=== PATIENT | female | born 1990 | race Caucasian/White ===

== ENCOUNTER 2016-07-11 13:01 | Emergency (ER) | payer OTHER ==
[2016-07-11] MEDS ORDERED: METOCLOPRAMIDE INJ 10MG/2ML VIAL (J2765) As Ordered ONE (13:56)
[2016-07-11] MEDS ORDERED: diphenhydrAMINE INJ 50MG/ML VIAL (J1200) As Ordered ONE (13:56)
[2016-07-11 14:07] LABS: MEAN CORPUSCULAR HEMOGLOBIN 30.8 pg (27.0-33.0); MEAN CORPUSCULAR HGB CONC 33.1 g/dl (32.0-36.5); MEAN CORPUSCULAR VOLUME 93.2 fl (80.0-96.0); RED CELL DISTRIBUTION WIDTH 12.6 % (11.5-14.5); WHITE BLOOD COUNT 14.6 K/mm3 (4.0-10.0)
[2016-07-11 14:29] LABS: CONTROL LINE HCG INT CTR LINE PRESENT
[2016-07-11 14:33] LABS: ANION GAP 5 MEQ/L (8-16); BLOOD UREA NITROGEN 9 MG/DL (7-18); CARBON DIOXIDE LEVEL 29 MEQ/L (21-32); CHLORIDE LEVEL 106 MEQ/L (98-107); CREATININE FOR GFR 0.86 MG/DL (0.55-1.02); GLOMERULAR FILTRATION RATE > 60.0 (>60); GLUCOSE, FASTING 170 MG/DL (70-105); POTASSIUM SERUM 4.2 MEQ/L (3.5-5.1); SODIUM LEVEL 140 MEQ/L (136-145)
--- NOTE | 2016-07-11 14:53 | REP ---
CT Head without contrast HISTORY: Headache COMPARISON: MR 05/10/2012 There is no intraparenchymal hemorrhage, acute infarct, mass or midline shift. The ventricular system is normal in appearance. There is no extra cerebral collection. There is no fracture. Mucosal thickening is present in the right ethmoid sinus. IMPRESSION: There is no intracranial lesion. Signed by Ubaldo Mcgrath MD 07/11/2016 02:45 P
--- NOTE | 2016-07-11 15:18 | EDDOCDS ---
Nurse's Notes [facility] Name: Evelia Bray Age: 26 yrs Sex: Female : 1990 Arrival Date: 07/11/2016 Time: 13:01 Bed I7 / 29 Private MD: John Ríos Diagnosis: Migraine Presentation: 07/11 13:04 Presenting complaint: Patient states: headache on and off for 6 months at least once a rs3 week. has taken Motrin previously. severe headache for 2 days. vomiting since last night. no relief with Motrin. Adult Sepsis Screening: The patient does not have new or worsening altered mentation. Patient's respiratory rate is less than 22. Systolic blood pressure is greater than 100. Patient has a qSOFA score of 0- Negative Sepsis Screen. Suicide/Homicide risk assessment- the patient denies having any suicidal and/or homicidal ideations and does not present with any other emotional, behavioral or mental health complaints. Status: The patient is a dependent. Transition of care: patient was not received from another setting of care. 13:04 Acuity: XIMENA Level 3 rs3 13:04 Method Of Arrival: Walkin/Carried/Asstd rs3 Triage Assessment: 13:06 General: Appears in no apparent distress. Pain: Location: forehead and right hindu. rs3 HIV screening NA for this visit Offered previously. 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 Humalog 100 unit/mL Sub-Q soln before meals 2. Lantus 100 unit/mL Sub-Q soln 30 unit nightly - PMHx: Diabetes - IDDM: controlled; - PSHx: ; - Social history: Smoking status: Patient uses tobacco products, light tobacco smoker. No barriers to communication noted, The patient speaks fluent Mongolian. - Family history: Not pertinent. - : The pt / caregiver states he / she is not on anticoagulants. Home medication list is obtained from the patient. - Exposure Risk Screening:: None identified. Screenin:39 Screening information is obtained from the patient. Fall risk: No risks identified. mk4 Assistance ADL's: requires no assistance with activities of daily living. Abuse/DV Screen: The patient / caregiver reports he/she is: not in a situation that causes fear, pain or injury. Nutritional screening: No deficits noted. Advance Directives: Currently, there is no health care proxy. There is no active DNR order. There is no living will. There is no Power of Psychiatric Mental Health Nurse. Advance directive information has not previously been placed in an [facility] medical record. Further advance directive information is declined. home support is adequate. Assessment: 14:02 General: Appears distressed, uncomfortable, Behavior is cooperative. Pain: Location: mk4 posterior headache Pain currently is 10 out of 10 on a pain scale. Neurological: Level of Consciousness is awake, alert. Respiratory: Airway is patent Respiratory effort is even, unlabored, Respiratory pattern is regular. 14:39 Reassessment: Patient states feeling better. headache not gone but feeling better. mk4 Neurological: Level of Consciousness is awake, alert, Reports some improvement. 15:17 Reassessment: Patient states feeling better. Pain: Location: headache Pain currently is kr3 3 out of 10 on a pain scale. Respiratory: Respiratory effort is even, unlabored. Derm: Skin is pink, warm & dry. Vital Signs: 13:02 BP 133 / 81; Pulse 104; Resp 18; Temp 97.6(T); Pulse Ox 100% on R/A; Weight 54.43 kg lr2 (R); Height 5 ft. 2 in. (157.48 cm); 15:15 BP 102 / 71; Pulse 82; Resp 18; Temp 97.8(O); Pulse Ox 99% on R/A; Pain 3/10; jml1 13:02 Body Mass Index 21.95 (54.43 kg, 157.48 cm) lr2 Vitals: 13:02 Log In Time: July 11, 2016 at 13:01. lr2 ED Course: 13:02 Patient visited by Laine Lozano. lr2 13:02 John Ríos DO is Private Physician. lr2 13:02 Patient moved to Waiting lr2 13:02 Patient moved to Pre RCE lr2 13:06 Triage Initiated rs3 13:26 Patient moved to Triage 3 jo3 13:28 [facility] ke 13:28 Patient visited by Sunday Gutierrez FNP. ke 13:28 Patient visited by Sunday Gutierrez FNP. ke 13:48 Patient moved to I7 / 29 rs3 13:59 Patient visited by Sunday Gutierrez FNP. ke 13:59 Inserted saline lock: 20 gauge in right antecubital area. mk4 14:01 HCG,Serum Qualitative Sent. mk4 14:01 BMP Sent. mk4 14:01 CBC Sent. mk4 14:33 Patient visited by Gina Perez RN. mk4 14:[address] mk4 14:39 The patient / caregiver is instructed regarding the plan of care and ED course. mk4 14:42 Patient moved to I7 ek2 14:48 ON LICENSE OF [facility] Payment Agreement was scanned into [employer] and attached to record. mm15 14:54 CT Head Without Contrast Returned. EDMS 14:59 Patient visited by Sunday Gutierrez FNP. ke 15:03 Niranjan Bain is Referral Physician. ke 15:15 Patient visited by Anatoliy Hanks. jml1 15:16 Discontinued lock intact, bleeding controlled, pressure dressing applied, No kr3 redness/swelling at site. No procedures done that require assistance. Administered Medications: 14:03 Drug: NS 0.9% 1000 ml [sodium chloride 0.9 % intravenous solution] Route: IV; Rate: kr3 bolus; Site: right antecubital; 15:16 Follow up: IV Status: Completed infusion; IV Intake: 1000ml kr3 14:03 Drug: Metoclopramide 10 mg [metoclopramide 5 mg/mL injection solution] Route: IV; Rate: kr3 40 mg/hr; Infused Over: 15 mins; Site: right antecubital; 15:16 Follow up: IV Status: Completed infusion kr3 14:03 Drug: diphenhydrAMINE 50 mg [diphenhydramine 50 mg/mL injection solution (1 mL)] Route: kr3 IVP; Site: right antecubital; Intake: 15:16 IV: 1000.00ml; Total: 1000.00ml. kr3 Order Results: Lab Order: CBC; SPEC'M 07/11/16 13:59 Test: WHITE BLOOD COUNT; Value: 14.6; Range: 4.0-10.0; Abnormal: Above high normal; Units: K/mm3; Status: F Test: RED BLOOD COUNT; Value: 4.79; Range: 4.00-5.40; Units: M/mm3; Status: F Test: HEMOGLOBIN; Value: 14.8; Range: 12.0-16.0; Units: g/dl; Status: F Test: HEMATOCRIT; Value: 44.6; Range: 36.0-47.0; Units: %; Status: F Test: MEAN CORPUSCULAR VOLUME; Value: 93.2; Range: 80.0-96.0; Units: fl; Status: F Test: MEAN CORPUSCULAR HEMOGLOBIN; Value: 30.8; Range: 27.0-33.0; Units: pg; Status: F Test: MEAN CORPUSCULAR HGB CONC; Value: 33.1; Range: 32.0-36.5; Units: g/dl; Status: F Test: RED CELL DISTRIBUTION WIDTH; Value: 12.6; Range: 11.5-14.5; Units: %; Status: F Test: PLATELET COUNT, AUTOMATED; Value: 319; Range: 150-450; Units: k/mm3; Status: F Lab Order: [facility]; SPEC'M 07/11/16 13:59 Test: GLUCOSE, FASTING; Value: 170; Range: 70-105; Abnormal: Above high normal; Units: MG/DL; Status: F Test: BLOOD UREA NITROGEN; Value: 9; Range: 7-18; Units: MG/DL; Status: F Test: CREATININE FOR GFR; Value: 0.86; Range: 0.55-1.02; Units: MG/DL; Status: F Test: SODIUM LEVEL; Range: 136-145; Units: MEQ/L; Status: I Test: POTASSIUM SERUM; Range: 3.5-5.1; Units: MEQ/L; Status: I Test: CHLORIDE LEVEL; Range: 98-107; Units: MEQ/L; Status: I Test: CARBON DIOXIDE LEVEL; Range: 21-32; Units: MEQ/L; Status: I Test: ANION GAP; Range: 8-16; Units: MEQ/L; Status: I Test: CALCIUM LEVEL; Range: 8.5-10.1; Units: MG/DL; Status: I Test: GLOMERULAR FILTRATION RATE; Value: > 60.0; Range: >60; Status: F Test: SODIUM LEVEL; Value: 140; Range: 136-145; Units: MEQ/L; Status: F Test: POTASSIUM SERUM; Value: 4.2; Range: 3.5-5.1; Units: MEQ/L; Status: F Test: CHLORIDE LEVEL; Value: 106; Range: 98-107; Units: MEQ/L; Status: F Test: CARBON DIOXIDE LEVEL; Value: 29; Range: 21-32; Units: MEQ/L; Status: F Test: ANION GAP; Value: 5; Range: 8-16; Abnormal: Below low normal; Units: MEQ/L; Status: F Test: CALCIUM LEVEL; Value: 9.0; Range: 8.5-10.1; Units: MG/DL; Status: F Test Note: ; Units are mL/min/1.73 m2 Chronic Kidney Disease Staging per NKF: Stage I & II GFR >=60 Normal to Mildly Decreased Stage III GFR 30-59 Moderately Decreased Stage IV GFR 15-29 Severely Decreased Stage V GFR <15 Very Little GFR Left ESRD GFR <15 on BOW MAKER CUSTOM Lab Order: HCG,Serum Qualitative; SPEC'M 07/11/16 13:59 Test: HCG, SERUM QUALITATIVE; Value: NEGATIVE; Range: NEGATIVE; Status: F Radiology Order: CT Head Without Contrast Test: CT Head Without Contrast REASON FOR EXAMINATION: nuñez; CT Head without contrast; ; HISTORY: Headache; ; COMPARISON: MR 05/10/2012; ; There is no intraparenchymal hemorrhage, acute infarct, mass or midline shift.; The ventricular system is normal in appearance. There is no extra cerebral; collection. There is no fracture. Mucosal thickening is present in the right; ethmoid sinus.; ; IMPRESSION: There is no intracranial lesion.; ; ; ; ; Signed by; Ubaldo Mcgrath MD 07/11/2016 02:45 P; Outcome: 15:03 Discharge ordered by Provider. ke 15:16 Discharge Assessment: patient administered narcotics - no. The following High Risk kr3 Discharge criteria are identified: None. Discharged to home ambulatory, with family. Condition: improved. Discharge instructions given to patient, Instructed on discharge instructions, follow up and referral plans. medication usage, Demonstrated understanding of instructions, medications, Pt was receptive of discharge instructions/ teaching. Prescriptions given X 1. CT Study completed. Property sent home with patient. 15:17 Patient left the ED. kr3 Signatures: [facility] Sunday Gutierrez, NET SOLUTIONS ARCHITECT NET SOLUTIONS ARCHITECT Mickie Robbins,RN RN kr3 Nidia Vences,RN RN jo3 Slick,Charlee,RN RN rs3 Anatoliy Hanks l1 Veronica Das 15 Gina Perez RN RN mk4 Chitra, Gokul 2 Laine Lozano2 MTDD
--- NOTE | 2016-07-11 15:18 | EDDOCDS ---
Physician Documentation [facility] Name: Evelia Bray Age: 26 yrs Sex: Female : 1990 Arrival Date: 07/11/2016 Time: 13:01 Bed I7 / 29 Private MD: John Ríos Disposition: 07/11/16 15:03 Discharged to Home/Self Care. Impression: Migraine. - Condition is Stable. - Discharge Instructions: Migraine Headache. - Prescriptions for Reglan 10 mg Oral Tablet - take 1 tablet by ORAL route every 6 hours take 30 minutes before meals and at bedtime; 20 tablet. - Medication Reconciliation, Local Pharmacy Hours form. - Follow up: Niranjan Bain; When: Call to arrange an appointment; Reason: Further diagnostic work-up, Continuance of care. - Problem is an acute exacerbation. - Symptoms have improved. Historical: - Allergies: no known allergies; - Home Meds: 1. Humalog 100 unit/mL Sub-Q soln before meals 2. Lantus 100 unit/mL Sub-Q soln 30 unit nightly - PMHx: Diabetes - IDDM: controlled; - PSHx: ; - Social history: Smoking status: Patient uses tobacco products, light tobacco smoker. No barriers to communication noted, The patient speaks fluent German. - Family history: Not pertinent. - : The pt / caregiver states he / she is not on anticoagulants. Home medication list is obtained from the patient. - Exposure Risk Screening:: None identified. 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 2 in. (157.48 cm); 15:15 BP 102 / 71; Pulse 82; Resp 18; Temp 97.8(O); Pulse Ox 99% on R/A; Pain 3/10; jml1 13:02 Body Mass Index 21.95 (54.43 kg, 157.48 cm) lr2 MDM: 13:46 IV Saline Lock ordered. ke 13:46 NS 0.9% 1000 ml IV at bolus once ordered. ke 13:46 Metoclopramide 10 mg IV at 40 mg/hr once over 15 mins ordered. ke 13:46 diphenhydrAMINE 50 mg IVP once ordered. ke 13:46 CBC Ordered. EDMS 13:46 BMP Ordered. EDMS 13:46 HCG,Serum Qualitative Ordered. EDMS 13:47 CT Head Without Contrast Ordered. EDMS 14:39 CBC Reviewed. ke 14:39 BMP Reviewed. ke 14:39 HCG,Serum Qualitative Reviewed. ke 14:46 Financial registration complete. mm15 14:48 [facility] Payment Agreement was scanned into [employer] and attached to record. mm15 14:56 CT Head Without Contrast Reviewed. ke Administered Medications: 14:03 Drug: NS 0.9% 1000 ml [sodium chloride 0.9 % intravenous solution] Route: IV; Rate: kr3 bolus; Site: right antecubital; 15:16 Follow up: IV Status: Completed infusion; IV Intake: 1000ml kr3 14:03 Drug: Metoclopramide 10 mg [metoclopramide 5 mg/mL injection solution] Route: IV; Rate: kr3 40 mg/hr; Infused Over: 15 mins; Site: right antecubital; 15:16 Follow up: IV Status: Completed infusion kr3 14:03 Drug: diphenhydrAMINE 50 mg [diphenhydramine 50 mg/mL injection solution (1 mL)] Route: kr3 IVP; Site: right antecubital; Signatures: Dispatcher [facility] EDMS Sunday Gutierrez, FEED MILL SUPERVISOR FEED MILL SUPERVISOR Mickie Robbins RN RN kr3 Charlee Kruger RN RN viviana3 Veronica Das mm15 Gina Perez RN RN mk4 The chart was reviewed and I authenticate all verbal orders and agree with the evaluation and treatment provided.Attachments: 14:48 [facility] Payment Agreement mm15 MTDD
--- NOTE | 2016-07-13 16:18 | EDDOCDS ---
Physician Documentation [facility] Name: Evelia Bray Age: 26 yrs Sex: Female : 1990 Arrival Date: 07/11/2016 Time: 13:01 Bed I7 / 29 Private MD: John Ríos Disposition: 07/11/16 15:03 Discharged to Home/Self Care. Impression: Migraine. - Condition is Stable. - Discharge Instructions: Migraine Headache. - Prescriptions for Reglan 10 mg Oral Tablet - take 1 tablet by ORAL route every 6 hours take 30 minutes before meals and at bedtime; 20 tablet. - Medication Reconciliation, Local Pharmacy Hours form. - Follow up: Niranjan Bain; When: Call to arrange an appointment; Reason: Further diagnostic work-up, Continuance of care. - Problem is an acute exacerbation. - Symptoms have improved. Historical: - Allergies: no known allergies; - Home Meds: 1. Humalog 100 unit/mL Sub-Q soln before meals 2. Lantus 100 unit/mL Sub-Q soln 30 unit nightly - PMHx: Diabetes - IDDM: controlled; - PSHx: ; - Social history: Smoking status: Patient uses tobacco products, light tobacco smoker. No barriers to communication noted, The patient speaks fluent Macanese. - Family history: Not pertinent. - : The pt / caregiver states he / she is not on anticoagulants. Home medication list is obtained from the patient. - Exposure Risk Screening:: None identified. 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 2 in. (157.48 cm); 15:15 BP 102 / 71; Pulse 82; Resp 18; Temp 97.8(O); Pulse Ox 99% on R/A; Pain 3/10; jml1 13:02 Body Mass Index 21.95 (54.43 kg, 157.48 cm) lr2 MDM: 13:46 IV Saline Lock ordered. ke 13:46 NS 0.9% 1000 ml IV at bolus once ordered. ke 13:46 Metoclopramide 10 mg IV at 40 mg/hr once over 15 mins ordered. ke 13:46 diphenhydrAMINE 50 mg IVP once ordered. ke 13:46 CBC Ordered. EDMS 13:46 BMP Ordered. EDMS 13:46 HCG,Serum Qualitative Ordered. EDMS 13:47 CT Head Without Contrast Ordered. EDMS 14:39 CBC Reviewed. ke 14:39 BMP Reviewed. ke 14:39 HCG,Serum Qualitative Reviewed. ke 14:46 Financial registration complete. mm15 14:48 [facility] Payment Agreement was scanned into [employer] and attached to record. mm15 14:56 CT Head Without Contrast Reviewed. ke 07/12 12:31 T-Sheet-- Draft Copy was scanned into [employer] and attached to record. gb Administered Medications: 07/11 14:03 Drug: NS 0.9% 1000 ml [sodium chloride 0.9 % intravenous solution] Route: IV; Rate: kr3 bolus; Site: right antecubital; 15:16 Follow up: IV Status: Completed infusion; IV Intake: 1000ml kr3 14:03 Drug: Metoclopramide 10 mg [metoclopramide 5 mg/mL injection solution] Route: IV; Rate: kr3 40 mg/hr; Infused Over: 15 mins; Site: right antecubital; 15:16 Follow up: IV Status: Completed infusion kr3 14:03 Drug: diphenhydrAMINE 50 mg [diphenhydramine 50 mg/mL injection solution (1 mL)] Route: kr3 IVP; Site: right antecubital; Signatures: Dispatcher [facility] EDMS Nicole Head, Reg Reg gb Sunday Gutierrez, MANPOWER DEVELOPMENT SPECIALIST MANAGER MANPOWER DEVELOPMENT SPECIALIST MANAGER Mickie RobbinsRN RN patria3 Charlee Kruger RN RN viviana3 Veronica Das mm15 Gina Perez RN RN mk4 The chart was reviewed and I authenticate all verbal orders and agree with the evaluation and treatment provided.Attachments: 14:48 [facility] Payment Agreement 15 07/12 12:31 T-Sheet-- Draft Copy gb Chart Complete MTDD
--- NOTE | 2016-07-13 16:18 | EDDOCDS ---
Nurse's Notes [facility] Name: Evelia Bray Age: 26 yrs Sex: Female : 1990 Arrival Date: 07/11/2016 Time: 13:01 Bed I7 / 29 Private MD: John Ríos Diagnosis: Migraine Presentation: 07/11 13:04 Presenting complaint: Patient states: headache on and off for 6 months at least once a rs3 week. has taken Motrin previously. severe headache for 2 days. vomiting since last night. no relief with Motrin. Adult Sepsis Screening: The patient does not have new or worsening altered mentation. Patient's respiratory rate is less than 22. Systolic blood pressure is greater than 100. Patient has a qSOFA score of 0- Negative Sepsis Screen. Suicide/Homicide risk assessment- the patient denies having any suicidal and/or homicidal ideations and does not present with any other emotional, behavioral or mental health complaints. Status: The patient is a dependent. Transition of care: patient was not received from another setting of care. 13:04 Acuity: XIMENA Level 3 rs3 13:04 Method Of Arrival: Walkin/Carried/Asstd rs3 Triage Assessment: 13:06 General: Appears in no apparent distress. Pain: Location: forehead and right church. rs3 HIV screening NA for this visit Offered previously. INFORMATION ASSURANCE MANAGER: 13:06 LMP 06/30/2016 rs3 Historical: - Allergies: no known allergies; - Home Meds: 1. Humalog 100 unit/mL Sub-Q soln before meals 2. Lantus 100 unit/mL Sub-Q soln 30 unit nightly - PMHx: Diabetes - IDDM: controlled; - PSHx: ; - Social history: Smoking status: Patient uses tobacco products, light tobacco smoker. No barriers to communication noted, The patient speaks fluent Tajik. - Family history: Not pertinent. - : The pt / caregiver states he / she is not on anticoagulants. Home medication list is obtained from the patient. - Exposure Risk Screening:: None identified. Screenin:39 Screening information is obtained from the patient. Fall risk: No risks identified. mk4 Assistance ADL's: requires no assistance with activities of daily living. Abuse/DV Screen: The patient / caregiver reports he/she is: not in a situation that causes fear, pain or injury. Nutritional screening: No deficits noted. Advance Directives: Currently, there is no health care proxy. There is no active DNR order. There is no living will. There is no Power of Boomboat Operator. Advance directive information has not previously been placed in an [facility] medical record. Further advance directive information is declined. home support is adequate. Assessment: 14:02 General: Appears distressed, uncomfortable, Behavior is cooperative. Pain: Location: mk4 posterior headache Pain currently is 10 out of 10 on a pain scale. Neurological: Level of Consciousness is awake, alert. Respiratory: Airway is patent Respiratory effort is even, unlabored, Respiratory pattern is regular. 14:39 Reassessment: Patient states feeling better. headache not gone but feeling better. mk4 Neurological: Level of Consciousness is awake, alert, Reports some improvement. 15:17 Reassessment: Patient states feeling better. Pain: Location: headache Pain currently is kr3 3 out of 10 on a pain scale. Respiratory: Respiratory effort is even, unlabored. Derm: Skin is pink, warm & dry. Vital Signs: 13:02 BP 133 / 81; Pulse 104; Resp 18; Temp 97.6(T); Pulse Ox 100% on R/A; Weight 54.43 kg lr2 (R); Height 5 ft. 2 in. (157.48 cm); 15:15 BP 102 / 71; Pulse 82; Resp 18; Temp 97.8(O); Pulse Ox 99% on R/A; Pain 3/10; jml1 13:02 Body Mass Index 21.95 (54.43 kg, 157.48 cm) lr2 Vitals: 13:02 Log In Time: July 11, 2016 at 13:01. lr2 ED Course: 13:02 Patient visited by Laine Lozano. lr2 13:02 John Ríos DO is Private Physician. lr2 13:02 Patient moved to Waiting lr2 13:02 Patient moved to Pre RCE lr2 13:06 Triage Initiated rs3 13:26 Patient moved to Triage 3 jo3 13:28 [facility]. ke 13:28 Patient visited by Sunday Gutierrez FNP. ke 13:28 Patient visited by Sunday Gutierrez FNP. ke 13:48 Patient moved to I7 / 29 rs3 13:59 Patient visited by Sunday Gutierrez FNP. ke 13:59 Inserted saline lock: 20 gauge in right antecubital area. mk4 14:01 HCG,Serum Qualitative Sent. mk4 14:01 BMP Sent. mk4 14:01 CBC Sent. mk4 14:33 Patient visited by Gina Perez RN. mk4 14:[address] mk4 14:39 The patient / caregiver is instructed regarding the plan of care and ED course. mk4 14:42 Patient moved to I7 / ek2 14:48 [facility] Payment Agreement was scanned into [employer] and attached to record. mm15 14:54 CT Head Without Contrast Returned. EDMS 14:59 Patient visited by Sunday Gutierrez FNP. ke 15:03 Niranjan Bain is Referral Physician. ke 15:15 Patient visited by Anatoliy Hanks. jml1 15:16 Discontinued lock intact, bleeding controlled, pressure dressing applied, No kr3 redness/swelling at site. No procedures done that require assistance. 07/12 12:31 T-Sheet-- Draft Copy was scanned into [employer] and attached to record. gb Administered Medications: 07/11 14:03 Drug: NS 0.9% 1000 ml [sodium chloride 0.9 % intravenous solution] Route: IV; Rate: kr3 bolus; Site: right antecubital; 15:16 Follow up: IV Status: Completed infusion; IV Intake: 1000ml kr3 14:03 Drug: Metoclopramide 10 mg [metoclopramide 5 mg/mL injection solution] Route: IV; Rate: kr3 40 mg/hr; Infused Over: 15 mins; Site: right antecubital; 15:16 Follow up: IV Status: Completed infusion kr3 14:03 Drug: diphenhydrAMINE 50 mg [diphenhydramine 50 mg/mL injection solution (1 mL)] Route: kr3 IVP; Site: right antecubital; Intake: 15:16 IV: 1000.00ml; Total: 1000.00ml. kr3 Order Results: Lab Order: CBC; SPEC'M 07/11/16 13:59 Test: WHITE BLOOD COUNT; Value: 14.6; Range: 4.0-10.0; Abnormal: Above high normal; Units: K/mm3; Status: F Test: RED BLOOD COUNT; Value: 4.79; Range: 4.00-5.40; Units: M/mm3; Status: F Test: HEMOGLOBIN; Value: 14.8; Range: 12.0-16.0; Units: g/dl; Status: F Test: HEMATOCRIT; Value: 44.6; Range: 36.0-47.0; Units: %; Status: F Test: MEAN CORPUSCULAR VOLUME; Value: 93.2; Range: 80.0-96.0; Units: fl; Status: F Test: MEAN CORPUSCULAR HEMOGLOBIN; Value: 30.8; Range: 27.0-33.0; Units: pg; Status: F Test: MEAN CORPUSCULAR HGB CONC; Value: 33.1; Range: 32.0-36.5; Units: g/dl; Status: F Test: RED CELL DISTRIBUTION WIDTH; Value: 12.6; Range: 11.5-14.5; Units: %; Status: F Test: PLATELET COUNT, AUTOMATED; Value: 319; Range: 150-450; Units: k/mm3; Status: F Lab Order: [facility]; SPEC'M 07/11/16 13:59 Test: GLUCOSE, FASTING; Value: 170; Range: 70-105; Abnormal: Above high normal; Units: MG/DL; Status: F Test: BLOOD UREA NITROGEN; Value: 9; Range: 7-18; Units: MG/DL; Status: F Test: CREATININE FOR GFR; Value: 0.86; Range: 0.55-1.02; Units: MG/DL; Status: F Test: SODIUM LEVEL; Range: 136-145; Units: MEQ/L; Status: I Test: POTASSIUM SERUM; Range: 3.5-5.1; Units: MEQ/L; Status: I Test: CHLORIDE LEVEL; Range: 98-107; Units: MEQ/L; Status: I Test: CARBON DIOXIDE LEVEL; Range: 21-32; Units: MEQ/L; Status: I Test: ANION GAP; Range: 8-16; Units: MEQ/L; Status: I Test: CALCIUM LEVEL; Range: 8.5-10.1; Units: MG/DL; Status: I Test: GLOMERULAR FILTRATION RATE; Value: > 60.0; Range: >60; Status: F Test: SODIUM LEVEL; Value: 140; Range: 136-145; Units: MEQ/L; Status: F Test: POTASSIUM SERUM; Value: 4.2; Range: 3.5-5.1; Units: MEQ/L; Status: F Test: CHLORIDE LEVEL; Value: 106; Range: 98-107; Units: MEQ/L; Status: F Test: CARBON DIOXIDE LEVEL; Value: 29; Range: 21-32; Units: MEQ/L; Status: F Test: ANION GAP; Value: 5; Range: 8-16; Abnormal: Below low normal; Units: MEQ/L; Status: F Test: CALCIUM LEVEL; Value: 9.0; Range: 8.5-10.1; Units: MG/DL; Status: F Test Note: ; Units are mL/min/1.73 m2 Chronic Kidney Disease Staging per NKF: Stage I & II GFR >=60 Normal to Mildly Decreased Stage III GFR 30-59 Moderately Decreased Stage IV GFR 15-29 Severely Decreased Stage V GFR <15 Very Little GFR Left ESRD GFR <15 on PROPERTY ASSESSMENT MONITOR Lab Order: HCG,Serum Qualitative; SPEC'M 07/11/16 13:59 Test: HCG, SERUM QUALITATIVE; Value: NEGATIVE; Range: NEGATIVE; Status: F Radiology Order: CT Head Without Contrast Test: CT Head Without Contrast REASON FOR EXAMINATION: nuñez; CT Head without contrast; ; HISTORY: Headache; ; COMPARISON: MR 05/10/2012; ; There is no intraparenchymal hemorrhage, acute infarct, mass or midline shift.; The ventricular system is normal in appearance. There is no extra cerebral; collection. There is no fracture. Mucosal thickening is present in the right; ethmoid sinus.; ; IMPRESSION: There is no intracranial lesion.; ; ; ; ; Signed by; Ubaldo Mcgrath MD 07/11/2016 02:45 P; Outcome: 15:03 Discharge ordered by Provider. arie 15:16 Discharge Assessment: patient administered narcotics - no. The following High Risk kr3 Discharge criteria are identified: None. Discharged to home ambulatory, with family. Condition: improved. Discharge instructions given to patient, Instructed on discharge instructions, follow up and referral plans. medication usage, Demonstrated understanding of instructions, medications, Pt was receptive of discharge instructions/ teaching. Prescriptions given X 1. CT Study completed. Property sent home with patient. 15:17 Patient left the ED. kr3 Signatures: Dispatcher [employer] EDMS Nicole Head, Reg Reg gb Sunday Gutierrez, HYDROMETER CALIBRATOR HYDROMETER CALIBRATOR Mickie Robbins,RN RN kr3 Nidia VencesRN RN jo3 Slick,MADDY Deshpande RN rs3 Anatoliy Hanks jml1 Veronica Das mm15 Gina Perez RN RN 4 Chitra, Gokul 2 Laine Lozano2 Chart Complete MTDD
--- NOTE | 2016-07-13 16:18 | EDDOCDS ---
Physician Documentation [facility] Name: Evelia Bray Age: 26 yrs Sex: Female : 1990 Arrival Date: 07/11/2016 Time: 13:01 Bed I7 / 29 Private MD: John Ríos Disposition: 07/11/16 15:03 Discharged to Home/Self Care. Impression: Migraine. - Condition is Stable. - Discharge Instructions: Migraine Headache. - Prescriptions for Reglan 10 mg Oral Tablet - take 1 tablet by ORAL route every 6 hours take 30 minutes before meals and at bedtime; 20 tablet. - Medication Reconciliation, Local Pharmacy Hours form. - Follow up: Niranjan Bain; When: Call to arrange an appointment; Reason: Further diagnostic work-up, Continuance of care. - Problem is an acute exacerbation. - Symptoms have improved. Historical: - Allergies: no known allergies; - Home Meds: 1. Humalog 100 unit/mL Sub-Q soln before meals 2. Lantus 100 unit/mL Sub-Q soln 30 unit nightly - PMHx: Diabetes - IDDM: controlled; - PSHx: ; - Social history: Smoking status: Patient uses tobacco products, light tobacco smoker. No barriers to communication noted, The patient speaks fluent Nepalese. - Family history: Not pertinent. - : The pt / caregiver states he / she is not on anticoagulants. Home medication list is obtained from the patient. - Exposure Risk Screening:: None identified. KENNEL HAND: 07/11 13:06 LMP 06/30/2016 rs3 Vital Signs: 13:02 BP 133 / 81; Pulse 104; Resp 18; Temp 97.6(T); Pulse Ox 100% on R/A; Weight 54.43 kg / lr2 120 lbs (R); Height 5 ft. 2 in. (157.48 cm); 15:15 BP 102 / 71; Pulse 82; Resp 18; Temp 97.8(O); Pulse Ox 99% on R/A; Pain 3/10; jml1 13:02 Body Mass Index 21.95 (54.43 kg, 157.48 cm) lr2 MDM: 13:46 IV Saline Lock ordered. ke 13:46 NS 0.9% 1000 ml IV at bolus once ordered. ke 13:46 Metoclopramide 10 mg IV at 40 mg/hr once over 15 mins ordered. ke 13:46 diphenhydrAMINE 50 mg IVP once ordered. ke 13:46 CBC Ordered. EDMS 13:46 BMP Ordered. EDMS 13:46 HCG,Serum Qualitative Ordered. EDMS 13:47 CT Head Without Contrast Ordered. EDMS 14:39 CBC Reviewed. ke 14:39 BMP Reviewed. ke 14:39 HCG,Serum Qualitative Reviewed. ke 14:46 Financial registration complete. mm15 14:48 [facility] Payment Agreement was scanned into [employer] and attached to record. mm15 14:56 CT Head Without Contrast Reviewed. ke 07/12 12:31 T-Sheet-- Draft Copy was scanned into [employer] and attached to record. gb Administered Medications: 07/11 14:03 Drug: NS 0.9% 1000 ml [sodium chloride 0.9 % intravenous solution] Route: IV; Rate: kr3 bolus; Site: right antecubital; 15:16 Follow up: IV Status: Completed infusion; IV Intake: 1000ml kr3 14:03 Drug: Metoclopramide 10 mg [metoclopramide 5 mg/mL injection solution] Route: IV; Rate: kr3 40 mg/hr; Infused Over: 15 mins; Site: right antecubital; 15:16 Follow up: IV Status: Completed infusion kr3 14:03 Drug: diphenhydrAMINE 50 mg [diphenhydramine 50 mg/mL injection solution (1 mL)] Route: kr3 IVP; Site: right antecubital; Signatures: Dispatcher [employer] EDMS Nicole Head, Reg Reg gb Sunday Gutierrez, WINDOW MAKER WINDOW MAKER Mickie RobbinsRN RN patria3 Charlee Kruger RN RN viviana3 Veronica Das mm15 Gina Perez RN RN mk4 The chart was reviewed and I authenticate all verbal orders and agree with the evaluation and treatment provided.Attachments: 14:48 [facility] Payment Agreement 15 07/12 12:31 T-Sheet-- Draft Copy gb Chart Complete MTDD
== END 2016-07-11 15:17 | disposition home or self-care (01) ==
LOC: M ED 13:01
DX: G43.909 Migraine, unspecified, not intractable, without status migrainosus (principal); E11.9 Type 2 diabetes mellitus without complications; Z79.4 Long term (current) use of insulin; F17.210 Nicotine dependence, cigarettes, uncomplicated
CPT/HCPCS: 36415; 70450; 80048; 84703; 85027; 96365; 96375; 99284; J1200; J2765

== ENCOUNTER → 2016-11-11 | Outpatient (REF) | payer OTHER | LOC: M SFHCPLAZ 11:19 | PROVIDERS: ATTEND Family Medicine | DX: Z32.01 Encounter for pregnancy test, result positive (principal); Z53.9 Procedure and treatment not carried out, unspecified reason ==

== ENCOUNTER → 2016-11-12 | Outpatient (CLI) | payer OTHER | LOC: M LAB 12:12 | PROVIDERS: ATTEND Family Medicine | DX: Z32.01 Encounter for pregnancy test, result positive (principal) ==

== ENCOUNTER 2016-12-16 14:15 | Emergency (ER) | payer OTHER ==
[~2016-12-16] VITALS: Ht 157.5 cm; Wt 54.5 kg
[2016-12-16] MEDS ORDERED: INSUNSD SC ×2 (14:32→14:33)
[2016-12-16] MEDS ORDERED: INSUHUMDS SC (14:32)
[2016-12-16] MEDS ORDERED: ZOFR4TAB3 PO (14:33)
[2016-12-16] MEDS ORDERED: ONDANSETRON 4MG/2ML VIAL (J2405) As Ordered ONE (14:40)
[2016-12-16] MEDS ORDERED: ONDANSETRON 4MG/2ML VIAL (J2405) IV ONE (15:00)
[2016-12-16 15:32] LABS: ANION GAP 6 MEQ/L (8-16); BLOOD UREA NITROGEN 10 MG/DL (7-18); CALCIUM LEVEL 8.5 MG/DL (8.5-10.1); CARBON DIOXIDE LEVEL 28 MEQ/L (21-32); CHLORIDE LEVEL 101 MEQ/L (98-107); CREATININE FOR GFR 0.75 MG/DL (0.55-1.02); GLOMERULAR FILTRATION RATE > 60.0 (>60); POTASSIUM SERUM 3.9 MEQ/L (3.5-5.1); SODIUM LEVEL 135 MEQ/L (136-145)
[2016-12-16 15:33] LABS: GLUCOSE, FASTING 28 MG/DL (70-105)
[2016-12-16 18:16] VITALS: BP 128/64
== END 2016-12-16 18:17 | disposition home or self-care (01) ==
LOC: M ED 14:15
DX: O24.011 Pre-existing type 1 diabetes mellitus, in pregnancy, first trimester (principal); Z3A.10 10 weeks gestation of pregnancy; Z79.4 Long term (current) use of insulin
CPT/HCPCS: 80048; 96374; 99283; J2405

== ENCOUNTER → 2017-02-28 | Outpatient (CLI) | payer OTHER ==
[~2017-02-28] MED LIST: INSUHUMDS SC; INSUNSD SC; ZOFR4TAB3 PO
== END ==
LOC: M LAB 10:40
PROVIDERS: ATTEND Family Medicine
DX: E10.9 Type 1 diabetes mellitus without complications (principal)

== ENCOUNTER → 2017-03-03 | Outpatient (REF) | payer OTHER | LOC: M SFHCPLAZ 14:32 | PROVIDERS: ATTEND Family Medicine | DX: F17.200 Nicotine dependence, unspecified, uncomplicated (principal) ==

== ENCOUNTER → 2017-07-08 | Outpatient (REF) | payer OTHER | LOC: M LAB REF 10:33 | DX: J02.9 Acute pharyngitis, unspecified (principal) | CPT/HCPCS: 87070 ==

== ENCOUNTER → 2018-02-06 | Outpatient (REF) | payer OTHER | LOC: M SFHCPLAZ 10:58 | DX: E10.9 Type 1 diabetes mellitus without complications (principal) ==

== ENCOUNTER → 2018-05-07 | Outpatient (CLI) | payer OTHER ==
[2018-05-07 11:08] LABS: CREATININE, URINE < 13.0 MG/DL; ESTIMATED AVERAGE GLUCOSE 94 MG/DL (60-110); HEMOGLOBIN A1c 4.9 %; MALB URINE SIEMENS < 5.0 MG/L
[2018-05-07 11:24] LABS: ANION GAP 5 MEQ/L (8-16); BLOOD UREA NITROGEN 7 MG/DL (7-18); CALCIUM LEVEL 8.5 MG/DL (8.5-10.1); CARBON DIOXIDE LEVEL 29 MEQ/L (21-32); CHLORIDE LEVEL 109 MEQ/L (98-107); CHOLESTEROL LEVEL 204 MG/DL (<200); CHOLESTEROL RISK RATIO 4.857 (<5); CREATININE FOR GFR 0.79 MG/DL (0.55-1.30); GLOMERULAR FILTRATION RATE > 60.0 (>60); GLUCOSE, FASTING 15 MG/DL (70-100); HDL CHOLESTEROL 42 MG/DL (>40); LDL CHOLESTEROL 147 MG/DL (<100); NON-HDL-C 162 MG/DL; SODIUM LEVEL 143 MEQ/L (136-145); TRIGLYCERIDES LEVEL 77 MG/DL (<150)
== END ==
LOC: M LAB 09:14
DX: E10.9 Type 1 diabetes mellitus without complications (principal)
CPT/HCPCS: 83036

== ENCOUNTER 2019-03-15 11:24 | Emergency (ER) | payer OTHER ==
[~2019-03-15] VITALS: Ht 157.5 cm; Wt 48.7 kg
[~2019-03-15 11:24] MED LIST changes: +ZOFR4TAB14 PO; -ZOFR4TAB3 PO
[2019-03-15 11:25] VITALS: BP 130/84
[2019-03-15] MEDS ORDERED: CEFD1CAP8 (11:32)
[2019-03-15] MEDS ORDERED: LIDO1SOL8 PO (11:58)
[2019-03-15] MEDS ORDERED: AUGM875T28 PO (11:58)
[2019-03-15] MEDS ORDERED: PRED20TA PO (12:03)
== END 2019-03-15 12:18 | disposition home or self-care (01) ==
LOC: M ED 11:24
DX: J32.9 Chronic sinusitis, unspecified (principal); J03.90 Acute tonsillitis, unspecified; E11.9 Type 2 diabetes mellitus without complications; F17.210 Nicotine dependence, cigarettes, uncomplicated; Z79.4 Long term (current) use of insulin

== ENCOUNTER → 2019-07-21 | Outpatient (CLI) | payer OTHER ==
[~2019-07-21] MED LIST changes: +AUGM875T28 PO; +CEFD1CAP8; +LIDO2SOL17 PO; +PRED20TA PO
[2019-07-21 09:52] LABS: HEMOGLOBIN A1c 5.7 %
[2019-07-21 10:01] LABS: CHOLESTEROL RISK RATIO 5.142 (<5)
[2019-07-21 10:27] LABS: CREATININE, URINE 28.9 MG/DL; MALB URINE SIEMENS < 5.0 MG/L; MAU/CREAT RATIO 17.3 MCG/MG (0.0-30.0)
== END ==
LOC: M LAB 08:50
PROVIDERS: ATTEND Student in an Organized Health Care Education/Training Program
DX: E10.9 Type 1 diabetes mellitus without complications (principal)

== ENCOUNTER → 2020-06-15 | Outpatient (CLI) | payer OTHER ==
[2020-06-15 11:53] LABS: HEMOGLOBIN A1c 5.3 %
[2020-06-15 12:17] LABS: CHOLESTEROL RISK RATIO 4.816 (<5)
== END ==
LOC: M LAB 10:09
PROVIDERS: ATTEND Student in an Organized Health Care Education/Training Program
DX: E10.649 Type 1 diabetes mellitus with hypoglycemia without coma (principal)

== ENCOUNTER → 2021-01-14 | Outpatient (CLI) | payer OTHER ==
[2021-01-14 12:33] LABS: HEMOGLOBIN A1c 5.6 %
[2021-01-14 12:43] LABS: ALBUMIN 3.7 GM/DL (3.2-5.2); ALT/SGPT 17 U/L (12-78); BILIRUBIN,TOTAL 0.2 MG/DL (0.2-1.0); BLOOD UREA NITROGEN 8 MG/DL (7-18); CALCIUM LEVEL 8.2 MG/DL (8.5-10.1); CARBON DIOXIDE LEVEL 28 MEQ/L (21-32); CHLORIDE LEVEL 110 MEQ/L (98-107); CHOLESTEROL LEVEL 211 MG/DL (<200); CHOLESTEROL RISK RATIO 4.795 (<5); GLOMERULAR FILTRATION RATE > 60.0 (>60); GLUCOSE, FASTING 112 MG/DL (70-100); HDL CHOLESTEROL 44 MG/DL (>40); LDL CHOLESTEROL 136 MG/DL (<100); NON-HDL-C 167 MG/DL; POTASSIUM SERUM 3.9 MEQ/L (3.5-5.1); SODIUM LEVEL 141 MEQ/L (136-145); TRIGLYCERIDES LEVEL 157 MG/DL (<150)
[2021-01-14 12:51] LABS: CREATININE, URINE 14.3 MG/DL; MALB URINE SIEMENS < 5.0 MG/L; MAU/CREAT RATIO 34.9 MCG/MG (0.0-30.0)
== END ==
LOC: M LAB 11:20
PROVIDERS: ATTEND Student in an Organized Health Care Education/Training Program
DX: E10.649 Type 1 diabetes mellitus with hypoglycemia without coma (principal)

== ENCOUNTER → 2021-03-07 | Outpatient (REF) | payer OTHER ==
[2021-03-07 14:05] LABS: APPEARANCE, URINE CLEAR (CLEAR); BACTERIA, URINE AUTO NEGATIVE (NEGATIVE); BILIRUBIN, URINE AUTO NEGATIVE (NEGATIVE); BLOOD, URINE BLOOD NEGATIVE (NEGATIVE); COLOR, URINE YELLOW (YELLOW); GLUCOSE, URINE (UA) AUTO NEGATIVE (NEGATIVE); KETONE, URINE AUTO NEGATIVE (NEGATIVE); LEUKOCYTE ESTERASE, URINE AUTO NEGATIVE (NEGATIVE); NITRITE, URINE AUTO NEGATIVE (NEGATIVE); PROTEIN, URINE AUTO NEGATIVE (NEGATIVE); RBC, URINE AUTO 0 /HPF (0-3); SPECIFIC GRAVITY URINE AUTO 1.003 (1.002-1.035); SQUAMOUS EPITHELIAL CELL UR AU 0 /HPF (0-6); UROBILINOGEN, URINE AUTO 0.2 mg/dL (0.0-2.0); WBC, URINE AUTO 0 /HPF (0-3)
[2021-03-07 16:01] LABS: GC DNA AMPLIFICATION NEGATIVE (NEGATIVE)
== END ==
LOC: M SFHCPLAZ 12:57
PROVIDERS: ATTEND Student in an Organized Health Care Education/Training Program
DX: R30.0 Dysuria (principal)

== ENCOUNTER → 2021-05-23 | Outpatient (REF) | payer OTHER ==
[2021-05-23 14:12] LABS: URINE PREG TEST NEGATIVE (NEGATIVE)
[2021-05-23 16:33] LABS: GC DNA AMPLIFICATION NEGATIVE (NEGATIVE)
== END ==
LOC: M SFHCPLAZ 13:26
PROVIDERS: ATTEND Student in an Organized Health Care Education/Training Program
DX: R10.2 Pelvic and perineal pain (principal)

== ENCOUNTER → 2021-08-16 | Outpatient (REF) | payer OTHER ==
[~2021-08-16] MED LIST changes: -CEFD1CAP8; +CEFD300C41
== END ==
LOC: M SFHCPLAZ 12:16
PROVIDERS: ATTEND Family Medicine
DX: Z53.9 Procedure and treatment not carried out, unspecified reason (principal)

== ENCOUNTER → 2021-08-24 | Outpatient (CLI) | payer OTHER ==
[2021-08-24 12:02] LABS: HEMOGLOBIN A1c 5.8 %
== END ==
LOC: M LAB 10:01
PROVIDERS: ATTEND Student in an Organized Health Care Education/Training Program
DX: E10.69 Type 1 diabetes mellitus with other specified complication (principal)

== ENCOUNTER → 2021-09-12 | Outpatient (REF) | payer OTHER | LOC: M PLALAB 08:50 | PROVIDERS: ATTEND Advanced Practice Midwife | DX: Z01.419 Encounter for gynecological examination (general) (routine) without abnormal findings (principal); Z12.4 Encounter for screening for malignant neoplasm of cervix ==

== ENCOUNTER → 2022-03-06 | Outpatient (CLI) | payer OTHER ==
[2022-03-06 10:25] LABS: BASO % 0.4 % (0.0-1.0); EOS # 0.1 10^3/uL (0.0-0.5); EOS % 1.7 % (0.0-3.0); HEMATOCRIT 44.6 % (36.0-47.0); HEMOGLOBIN 14.2 g/dl (12.0-15.5); LYMPH # 2.8 10^3/uL (1.5-5.0); LYMPH % 33.7 % (24.0-44.0); MEAN CORPUSCULAR HEMOGLOBIN 30.9 pg (27.0-33.0); MEAN CORPUSCULAR HGB CONC 31.8 g/dl (32.0-36.5); MEAN CORPUSCULAR VOLUME 97.2 fl (80.0-96.0); MONO # 0.7 10^3/uL (0.0-0.8); MONO % 7.9 % (2.0-8.0); NEUTROPHILS # 4.6 10^3/uL (1.5-8.5); NEUTROPHILS % 56.1 % (36.0-66.0); PLATELET COUNT, AUTOMATED 297 10^3/uL (150-450); RED BLOOD COUNT 4.59 10^6/uL (4.00-5.40); WHITE BLOOD COUNT 8.3 10^3/uL (4.0-10.0)
[2022-03-06 10:57] LABS: HEMOGLOBIN A1c 5.8 %
[2022-03-06 11:12] LABS: ALBUMIN 3.9 GM/DL (3.2-5.2); ALT/SGPT 15 U/L (12-78); BILIRUBIN,TOTAL 0.5 MG/DL (0.2-1.0); BLOOD UREA NITROGEN 8 MG/DL (7-18); CALCIUM LEVEL 9.2 MG/DL (8.5-10.1); CARBON DIOXIDE LEVEL 28 MEQ/L (21-32); CHLORIDE LEVEL 105 MEQ/L (98-107); CHOLESTEROL LEVEL 247 MG/DL (<200); CHOLESTEROL RISK RATIO 5.488 (<5); CREATININE FOR GFR 0.87 MG/DL (0.55-1.30); GLOMERULAR FILTRATION RATE > 60.0 (>60); GLUCOSE, FASTING 234 MG/DL (70-100); HDL CHOLESTEROL 45 MG/DL (>40); LDL CHOLESTEROL 181 MG/DL (<100); NON-HDL-C 202 MG/DL; POTASSIUM SERUM 4.6 MEQ/L (3.5-5.1); SODIUM LEVEL 136 MEQ/L (136-145); TOTAL PROTEIN 7.2 GM/DL (6.4-8.2); TRIGLYCERIDES LEVEL 104 MG/DL (<150)
[2022-03-06 11:26] LABS: MALB URINE SIEMENS 9.2 MG/L; MAU/CREAT RATIO 3.1 MCG/MG (0.0-30.0)
== END ==
LOC: M PLALAB 08:27
PROVIDERS: ATTEND Internal Medicine
DX: E10.9 Type 1 diabetes mellitus without complications (principal); J02.8 Acute pharyngitis due to other specified organisms; E78.2 Mixed hyperlipidemia

== ENCOUNTER → 2022-03-21 | Outpatient (CLI) | payer OTHER ==
[2022-03-21 15:42] LABS: BLOOD UREA NITROGEN 8 MG/DL (7-18); CALCIUM LEVEL 9.4 MG/DL (8.5-10.1); CARBON DIOXIDE LEVEL 30 MEQ/L (21-32); CHLORIDE LEVEL 103 MEQ/L (98-107); FREE T4 0.96 NG/DL (0.76-1.46); GLOMERULAR FILTRATION RATE > 60.0 (>60); GLUCOSE, FASTING 143 MG/DL (70-100); POTASSIUM SERUM 4.6 MEQ/L (3.5-5.1); SODIUM LEVEL 136 MEQ/L (136-145); THYROID STIMULATING HORMONE 0.669 uIU/ML (0.358-3.740)
[2022-03-21 16:06] LABS: FOLATE 9.7 NG/ML (>5.4); VITAMIN B12 LEVEL 515 PG/ML (247-911)
== END ==
LOC: M PLALAB 11:10
PROVIDERS: ATTEND Student in an Organized Health Care Education/Training Program
DX: R20.0 Anesthesia of skin (principal); M79.10 Myalgia, unspecified site

== ENCOUNTER → 2022-06-04 | Outpatient (CLI) | payer OTHER ==
[2022-06-05 20:07] LABS: ALBUMIN 4.1 g/dL (2.9-4.4); ALPHA-1-GLOBULINS 0.2 g/dL (0.0-0.4); ALPHA-2-GLOBULINS 0.7 g/dL (0.4-1.0); BETA-1-GLOBULINS 0.9 g/dL (0.7-1.3); GAMMA GLOBULINS 1.3 g/dL (0.4-1.8); TOTAL PROTEIN ELECTROPHORESIS 7.2 g/dL (6.0-8.5)
== END ==
LOC: M PLALAB 09:36
PROVIDERS: ATTEND Student in an Organized Health Care Education/Training Program
DX: G62.9 Polyneuropathy, unspecified (principal)

== ENCOUNTER → 2022-06-23 | Outpatient (REF) | payer OTHER ==
[~2022-06-23] MED LIST changes: +LIDO15SO4 PO; -LIDO2SOL17 PO
== END ==
LOC: M WUC 18:35
PROVIDERS: ATTEND Student in an Organized Health Care Education/Training Program
DX: J02.9 Acute pharyngitis, unspecified (principal)

== ENCOUNTER 2023-03-10 11:25 | Emergency (ER) | payer OTHER ==
[~2023-03-10] VITALS: Ht 157.5 cm; Wt 55.9 kg
[~2023-03-10 11:25] MED LIST changes: -CEFD300C41; +CEFD300C42; +LIDO15SO PO; -LIDO15SO4 PO
[2023-03-10] MEDS ORDERED: ATOR1TAB19 PO (12:12)
[2023-03-10 12:47] LABS: BASO % 0.3 % (0.0-1.0); EOS % 0.3 % (0.0-3.0); HEMATOCRIT 43.8 % (36.0-47.0); HEMOGLOBIN 13.9 g/dl (12.0-15.5); LYMPH # 2.7 10^3/uL (1.5-5.0); LYMPH % 30.1 % (24.0-44.0); MEAN CORPUSCULAR HEMOGLOBIN 31.3 pg (27.0-33.0); MEAN CORPUSCULAR HGB CONC 31.7 g/dl (32.0-36.5); MEAN CORPUSCULAR VOLUME 98.6 fl (80.0-96.0); MONO # 0.5 10^3/uL (0.0-0.8); MONO % 6.1 % (2.0-8.0); NEUTROPHILS # 5.6 10^3/uL (1.5-8.5); PLATELET COUNT, AUTOMATED 268 10^3/uL (150-450); RED BLOOD COUNT 4.44 10^6/uL (4.00-5.40); WHITE BLOOD COUNT 8.9 10^3/uL (4.0-10.0)
[2023-03-10 13:32] LABS: ALBUMIN 4.1 G/DL (3.2-5.2); ALKALINE PHOSPHATASE 62 U/L (46-116); ALT/SGPT 10 U/L (7.0-40); AST/SGOT 15 U/L (<34); BILIRUBIN,DIRECT < 0.1 MG/DL (<0.4); BILIRUBIN,TOTAL 0.3 MG/DL (0.3-1.2); BLOOD UREA NITROGEN < 5 MG/DL (9-23); CALCIUM LEVEL 8.8 MG/DL (8.5-10.1); CARBON DIOXIDE LEVEL 29 MMOL/L (20-31); CHLORIDE LEVEL 107 MMOL/L (98-107); CREATININE FOR GFR 0.67 MG/DL (0.55-1.30); GLOMERULAR FILTRATION RATE > 60.0 (>60); GLUCOSE, FASTING 91 MG/DL (60-100); POTASSIUM SERUM 4.4 MMOL/L (3.5-5.1); SODIUM LEVEL 140 MMOL/L (136-145); TOTAL PROTEIN 6.9 G/DL (5.7-8.2)
[2023-03-10 16:04] LABS: RSV AMPLIFICATION NEGATIVE (NEGATIVE)
[2023-03-10] MEDS ORDERED: SIME180C25 PO (17:12)
[2023-03-10 17:43] VITALS: BP 128/75; TEMP 98.7; O2SAT 100
== END 2023-03-10 18:01 | disposition home or self-care (01) ==
LOC: M ED 11:25
DX: R10.9 Unspecified abdominal pain (principal); F17.200 Nicotine dependence, unspecified, uncomplicated; F41.9 Anxiety disorder, unspecified; E11.9 Type 2 diabetes mellitus without complications; Z79.02 Long term (current) use of antithrombotics/antiplatelets; Z79.4 Long term (current) use of insulin; Z79.899 Other long term (current) drug therapy

== ENCOUNTER → 2023-05-06 | Outpatient (CLI) | payer OTHER ==
[~2023-05-06] MED LIST changes: +ATOR1TAB19 PO; +CEFD1CAP9; -CEFD300C42; +SIME180C25 PO
== END ==
LOC: M SOG 07:53
PROVIDERS: ATTEND Physician Assistant
DX: M25.541 Pain in joints of right hand (principal); M25.542 Pain in joints of left hand; Z53.9 Procedure and treatment not carried out, unspecified reason

== ENCOUNTER 2023-06-13 07:24 | Day surgery (SDC) | payer OTHER ==
[~2023-06-13] VITALS: Ht 157.5 cm; Wt 57.6 kg
[~2023-06-13 07:24] MED LIST changes: +ASPI81TA26 PO; +BASA100I SC; +VITMTA PO; +lispro insulin SC
[2023-06-13] MEDS ORDERED: fentaNYL 100 MCG/2 ML INJECTION As Ordered ONE (08:16)
[2023-06-13] MEDS ORDERED: MIDAZOLAM INJ 2MG/2ML VIAL As Ordered ONE (08:16)
[2023-06-13] MEDS ORDERED: ONDANSETRON 4MG 2ML VIAL As Ordered ONE (08:17)
[2023-06-13] MEDS ORDERED: propofoL 200 MG/20 ML VIAL As Ordered ONE ×2 (08:17→10:54)
[2023-06-13] MEDS ORDERED: GLYCOPYRROLATE INJ 0.2 MG/ML 2 ML VIAL As Ordered ONE (08:17)
[2023-06-13] MEDS ORDERED: LIDOCAINE 2% 100MG/5ML SDV (FOR ANES.) As Ordered ONE (08:17)
[2023-06-13] MEDS ORDERED: KETOROLAC 60MG 2ML VIAL As Ordered ONE (08:17)
[2023-06-13] MEDS ORDERED: LR 1,000 ML IV SCH (09:10)
[2023-06-13] MEDS ORDERED: ACETAMINOPHEN 1000MG 100ML IV BAG As Ordered ONE (10:52)
[2023-06-13] MEDS ORDERED: ONDANSETRON 4MG 2ML VIAL IV PRN (11:10)
[2023-06-13] MEDS ORDERED: oxyCODONE 5MG TAB PO PRN (11:10)
[2023-06-13] MEDS ORDERED: MORPHINE 2 MG/ML 1ML VIAL IV PRN (11:10)
[2023-06-13] MEDS ORDERED: fentaNYL 100 MCG/2 ML INJECTION IV PRN (11:10)
[2023-06-13] MEDS ORDERED: INSULIN LISPRO (NovoLOG) PER UNIT SC STA (11:21)
[2023-06-13] MEDS ORDERED: ROCURONIUM BROMIDE 50MG/5ML VIAL As Ordered ONE (11:47)
[2023-06-13 12:10] VITALS: BP 119/65; TEMP 98; O2SAT 95
== END 2023-06-13 12:43 | disposition home or self-care (01) ==
LOC: M SDC 07:24
PROVIDERS: ATTEND Orthopaedic Surgery Hand Surgery
DX: G56.02 Carpal tunnel syndrome, left upper limb (principal); E10.9 Type 1 diabetes mellitus without complications; E78.00 Pure hypercholesterolemia, unspecified; Z79.4 Long term (current) use of insulin; Z79.82 Long term (current) use of aspirin; F17.200 Nicotine dependence, unspecified, uncomplicated
CPT/HCPCS: 29848; J0131; J0665; J1100; J1885; J2250; J2405; J3010

== ENCOUNTER 2023-11-19 14:41 | Emergency (ER) | payer OTHER ==
[~2023-11-19] VITALS: Ht 157.5 cm; Wt 56.8 kg
[~2023-11-19 14:41] MED LIST changes: -LIDO15SO PO; +LIDO15SO8 PO
[2023-11-19] MEDS ORDERED: ADME100I SC (14:49)
[2023-11-19 18:05] LABS: BASO % 0.1 % (0.0-1.0); EOS # 0.1 10^3/uL (0.0-0.5); EOS % 0.4 % (0.0-3.0); HEMATOCRIT 44.3 % (36.0-47.0); HEMOGLOBIN 14.5 g/dl (12.0-15.5); LYMPH # 3.2 10^3/uL (1.5-5.0); LYMPH % 24.2 % (24.0-44.0); MEAN CORPUSCULAR HEMOGLOBIN 31.3 pg (27.0-33.0); MEAN CORPUSCULAR HGB CONC 32.7 g/dl (32.0-36.5); MEAN CORPUSCULAR VOLUME 95.5 fl (80.0-96.0); MONO # 0.6 10^3/uL (0.0-0.8); MONO % 4.2 % (2.0-8.0); NEUTROPHILS # 9.5 10^3/uL (1.5-8.5); NEUTROPHILS % 70.9 % (36.0-66.0); PLATELET COUNT, AUTOMATED 356 10^3/uL (150-450); RED BLOOD COUNT 4.64 10^6/uL (4.00-5.40); WHITE BLOOD COUNT 13.4 10^3/uL (4.0-10.0)
[2023-11-19 18:29] LABS: PARTIAL THROMBOPLASTIN TIME 31.4 SECONDS (24.8-34.2); PROTHROMBIN TIME 12.9 SECONDS (12.5-14.5)
[2023-11-19 20:20] VITALS: BP 133/85; TEMP 99.2; O2SAT 97
[2023-11-19] MEDS ORDERED: BENZ200C70 PO (22:04)
== END 2023-11-19 22:17 | disposition home or self-care (01) ==
LOC: M ED 14:41
DX: J06.9 Acute upper respiratory infection, unspecified (principal); R20.2 Paresthesia of skin; E11.9 Type 2 diabetes mellitus without complications; F17.200 Nicotine dependence, unspecified, uncomplicated; Z79.02 Long term (current) use of antithrombotics/antiplatelets; Z79.4 Long term (current) use of insulin; Z79.899 Other long term (current) drug therapy

== ENCOUNTER → 2023-12-23 | Outpatient (CLI) | payer OTHER ==
[~2023-12-23] MED LIST changes: +ADME100I SC; +BENZ200C70 PO
[2023-12-25 14:17] LABS: QuantiFERON-TB Gold Plus NEGATIVE (NEGATIVE)
== END ==
LOC: M PLALAB 09:42
PROVIDERS: ATTEND Student in an Organized Health Care Education/Training Program
DX: Z11.1 Encounter for screening for respiratory tuberculosis (principal)

== ENCOUNTER → 2023-12-23 | Outpatient (CLI) | payer OTHER ==
[2023-12-23 13:12] LABS: ALBUMIN 3.6 G/DL (3.2-5.2); ALKALINE PHOSPHATASE 71 U/L (46-116); ALT/SGPT 10 U/L (7.0-40); AST/SGOT 8 U/L (<34); BILIRUBIN,TOTAL 0.2 MG/DL (0.3-1.2); BLOOD UREA NITROGEN 6 MG/DL (9-23); CALCIUM LEVEL 8.8 MG/DL (8.5-10.1); CARBON DIOXIDE LEVEL 30 MMOL/L (20-31); CHLORIDE LEVEL 109 MMOL/L (98-107); CHOLESTEROL LEVEL 209 MG/DL (<200); CHOLESTEROL RISK RATIO 6.53 (<5); GLOMERULAR FILTRATION RATE > 60.0 (>60); GLUCOSE, FASTING 114 MG/DL (60-100); LDL CHOLESTEROL 153.8 MG/DL (<100); POTASSIUM SERUM 3.9 MMOL/L (3.5-5.1); SODIUM LEVEL 141 MMOL/L (136-145); TOTAL PROTEIN 6.3 G/DL (5.7-8.2); TRIGLYCERIDES LEVEL 116 MG/DL (<150)
[2023-12-23 13:42] LABS: MAU/CREAT RATIO 462.9 MCG/MG (0.0-30.0)
== END ==
LOC: M PLALAB 09:44
PROVIDERS: ATTEND Nurse Practitioner Family
DX: E10.649 Type 1 diabetes mellitus with hypoglycemia without coma (principal); E78.2 Mixed hyperlipidemia

== ENCOUNTER → 2023-12-25 | Outpatient (CLI) | payer OTHER | LOC: M PLALAB 08:51 | PROVIDERS: ATTEND Student in an Organized Health Care Education/Training Program | DX: Z11.1 Encounter for screening for respiratory tuberculosis (principal) ==

== ENCOUNTER → 2024-01-13 | Outpatient (REF) | payer OTHER | LOC: M SFHCPLAZ 14:41 | PROVIDERS: ATTEND Family Medicine | DX: E10.9 Type 1 diabetes mellitus without complications (principal); R80.9 Proteinuria, unspecified ==

== ENCOUNTER → 2024-02-03 | Outpatient (REF) | payer OTHER | LOC: M SFHCPLAZ 16:09 | PROVIDERS: ATTEND Family Medicine | DX: E10.9 Type 1 diabetes mellitus without complications (principal); R80.9 Proteinuria, unspecified ==

== ENCOUNTER → 2024-02-12 | Outpatient (CLI) | payer OTHER ==
[2024-02-12 11:36] LABS: HEMOGLOBIN A1c 4.6 % (4.0-6.0)
[2024-02-12 11:49] LABS: CREATININE, URINE 242.8 MG/DL; MALB URINE SIEMENS < 3.0 MG/L; MAU/CREAT RATIO 1.2 MCG/MG (0.0-30.0)
[2024-02-12 11:53] LABS: ALBUMIN 3.8 G/DL (3.2-5.2); ALKALINE PHOSPHATASE 72 U/L (46-116); ALT/SGPT 19 U/L (7.0-40); AST/SGOT 20 U/L (<34); BILIRUBIN,TOTAL 0.4 MG/DL (0.3-1.2); BLOOD UREA NITROGEN < 5 MG/DL (9-23); CALCIUM LEVEL 8.7 MG/DL (8.5-10.1); CARBON DIOXIDE LEVEL 30 MMOL/L (20-31); CHLORIDE LEVEL 108 MMOL/L (98-107); CHOLESTEROL LEVEL 100 MG/DL (<200); CHOLESTEROL RISK RATIO 3.64 (<5); CREATININE FOR GFR 0.82 MG/DL (0.55-1.30); GLOMERULAR FILTRATION RATE > 60.0 (>60); GLUCOSE, FASTING 48 MG/DL (60-100); HDL CHOLESTEROL 27.4 MG/DL (>40); LDL CHOLESTEROL 60.8 MG/DL (<100); NON-HDL-C 72.6 MG/DL; POTASSIUM SERUM 4.1 MMOL/L (3.5-5.1); SODIUM LEVEL 140 MMOL/L (136-145); TOTAL PROTEIN 6.7 G/DL (5.7-8.2); TRIGLYCERIDES LEVEL 59 MG/DL (<150)
== END ==
LOC: M PLALAB 08:35
PROVIDERS: ATTEND Student in an Organized Health Care Education/Training Program
DX: E10.9 Type 1 diabetes mellitus without complications (principal); E78.2 Mixed hyperlipidemia; R80.9 Proteinuria, unspecified

== ENCOUNTER → 2024-04-07 | Outpatient (CLI) | payer OTHER ==
[~2024-04-07] MED LIST changes: -SIME180C25 PO; +SIME1CAP4 PO
[2024-04-07 15:25] LABS: BASO % 0.2 % (0.0-1.0); EOS # 0.1 10^3/uL (0.0-0.5); EOS % 0.6 % (0.0-3.0); HEMATOCRIT 43.2 % (36.0-47.0); HEMOGLOBIN 14.2 g/dl (12.0-15.5); LYMPH # 2.7 10^3/uL (1.5-5.0); LYMPH % 26.3 % (24.0-44.0); MEAN CORPUSCULAR HEMOGLOBIN 32.1 pg (27.0-33.0); MEAN CORPUSCULAR HGB CONC 32.9 g/dl (32.0-36.5); MEAN CORPUSCULAR VOLUME 97.7 fl (80.0-96.0); MONO # 0.6 10^3/uL (0.0-0.8); MONO % 5.8 % (2.0-8.0); NEUTROPHILS # 6.9 10^3/uL (1.5-8.5); NEUTROPHILS % 66.8 % (36.0-66.0); PLATELET COUNT, AUTOMATED 319 10^3/uL (150-450); RED BLOOD COUNT 4.42 10^6/uL (4.00-5.40); WHITE BLOOD COUNT 10.4 10^3/uL (4.0-10.0)
[2024-04-07 16:00] LABS: FOLATE 15.43 NG/ML (>5.4)
[2024-04-07 16:01] LABS: THYROID STIMULATING HORMONE 1.686 uIU/ML (0.55-4.78); TOTAL 25(OH) VITAMIN D 48.5 NG/ML (20.0-100.0)
== END ==
LOC: M PLALAB 12:27
PROVIDERS: ATTEND Student in an Organized Health Care Education/Training Program
DX: R53.1 Weakness (principal)

== ENCOUNTER → 2024-08-16 | Outpatient (CLI) | payer OTHER | LOC: M PLAIMG 09:18 | PROVIDERS: ATTEND Family Medicine | DX: M25.561 Pain in right knee (principal) ==

== ENCOUNTER 2024-12-26 16:47 | Inpatient (IN) | payer OTHER ==
[~2024-12-26] VITALS: Ht 157.5 cm; Wt 52.1 kg
[2024-12-26 17:30] LABS: VENOUS BASE EXCESS -6.7 (-2.0-2.0); VENOUS HCO3 20.4 MMOL/L (23.0-27.0); VENOUS O2 SATURATION 69.0 % (60.0-80.0); VENOUS PARTIAL PRESSURE CO2 46.2 mmHg (38.0-50.0); VENOUS PARTIAL PRESSURE O2 41.0 mmHg (30.0-50.0); VENOUS PH 7.262 UNITS (7.330-7.430); VENOUS STANDARD HCO3 18.5 MMOL/L; VENOUS TOTAL CO2 21.8 MMOL/L (24.0-28.0)
[2024-12-26 17:36] LABS: BASO # 0.1 10^3/uL (0.0-0.2); BASO % 0.2 % (0.0-1.0); EOS # 0.0 10^3/uL (0.0-0.5); EOS % 0.0 % (0.0-3.0); LYMPH # 0.7 10^3/uL (1.5-5.0); LYMPH % 2.6 % (24.0-44.0); MONO # 1.3 10^3/uL (0.0-0.8); MONO % 4.6 % (2.0-8.0); NEUTROPHILS # 26.4 10^3/uL (1.5-8.5); NEUTROPHILS % 91.8 % (36.0-66.0); PLATELET COUNT, AUTOMATED 396 10^3/uL (150-450)
[2024-12-26 17:50] LABS: KETONE, URINE AUTO RFX 1+ mg/dL (NEGATIVE); LEUKOCYTE ESTERASE UR AUTO RFX NEGATIVE (NEGATIVE); NITRITE, URINE AUTO RFX NEGATIVE (NEGATIVE); RBC, URINE AUTO RFX 7 /HPF (0-3); SQUAM EPITHELIAL CELL UR AURFX 0 /HPF (0-6); WBC, URINE AUTO RFX 0 /HPF (0-3)
[2024-12-26 17:56] LABS: ESTIMATED AVERAGE GLUCOSE 134.0 MG/DL (60-110)
[2024-12-26 17:58] LABS: OSMOLALITY SERUM 332.0 MOSM/KG (275-295)
[2024-12-26 18:00] LABS: URINE PREG TEST NEGATIVE (NEGATIVE)
[2024-12-26 18:03] LABS: ACETONE/KETONE 0.97 MMOL/L (0.02-0.27)
[2024-12-26] MEDS: NS (Normal Saline) 0.9% 1,000 ML IV ONE (18:17)
[2024-12-26] MEDS: HumuLIN R (REGULAR) INSULIN (NovoLIN R) **100 U/ML** PER UNIT IV ONE (18:17)
[2024-12-26] MEDS: ACETAMINOPHEN 325 MG TAB PO ONE (18:18)
[2024-12-26 18:19] LABS: ALT/SGPT 14.0 U/L (7.0-40); AST/SGOT 14.0 U/L (<34); CALCIUM LEVEL 9.7 MG/DL (8.5-10.1); CARBON DIOXIDE LEVEL 22.0 MMOL/L (20-31); CHLORIDE LEVEL 94.0 MMOL/L (98-107); CREATININE FOR GFR 0.98 MG/DL (0.55-1.30); GLOMERULAR FILTRATION RATE 77.2 (>60); POTASSIUM SERUM 4.7 MMOL/L (3.5-5.1); SODIUM LEVEL 135.0 MMOL/L (136-145)
[2024-12-26] MEDS: LR 1,000 ML IV ONE (19:46)
[2024-12-26] MEDS: INSULIN REGULAR IN 0.9 % NACL 100 UNIT in IV 1 EA IV SCH (19:56)
[2024-12-26] MEDS: PANTOPRAZOLE 40MG VIAL IV SCH (20:08)
[2024-12-26 20:50] VITALS: BP 118/56; TEMP 98.2; O2SAT 100
[2024-12-26] MEDS: LR 1,000 ML IV SCH (20:56)
[2024-12-26] MEDS: AUGMENTIN 875 MG TAB PO SCH (20:58)
[2024-12-26 21:00] VITALS: BP 115/56; O2SAT 100
[2024-12-26] MEDS: INSULIN IV RATE CHANGE DOCUMENTATION ML/HR XX SCH (21:00)
[2024-12-26 21:44] LABS: CALCIUM LEVEL 8.8 MG/DL (8.5-10.1); CARBON DIOXIDE LEVEL 24 MMOL/L (20-31); CHLORIDE LEVEL 105 MMOL/L (98-107); CREATININE FOR GFR 0.86 MG/DL (0.55-1.30); GLOMERULAR FILTRATION RATE > 90.0 (>60); MAGNESIUM LEVEL 1.8 MG/DL (1.8-2.4); PHOSPHORUS LEVEL 1.7 MG/DL (2.5-4.9); POTASSIUM SERUM 3.6 MMOL/L (3.5-5.1); SODIUM LEVEL 142 MMOL/L (136-145)
[2024-12-26 22:00] VITALS: BP 101/54; O2SAT 100
[2024-12-26] MEDS ORDERED: ROSU20TA86 PO (22:48)
[2024-12-26] MEDS ORDERED: INSUHUMDS (22:48)
[2024-12-26] MEDS ORDERED: ASPI-226 PO (22:48)
[2024-12-26] MEDS ORDERED: MULT-90 PO (22:49)
[2024-12-26] MEDS ORDERED: HOME MED LIST COMPLETE! XX SCH (22:50)
[2024-12-26] MEDS: KCL 20MEQ IN D5/NS 1000ML 1,000 ML IV SCH (22:52)
[2024-12-26] MEDS: POTASSIUM CHLORIDE 10MEQ SR TABLET PO ONE (22:52)
[2024-12-26 23:00] VITALS: BP 109/59; O2SAT 100
[2024-12-27] VITALS (16 sets, daily range): BP systolic 92–131; BP diastolic 52–76; TEMP 97.8–99; O2SAT 97–100
[2024-12-27] MEDS: LanTUS (INSULIN GLARGINE INJ) 1 UNITS/0.01 ML SC ONE ×2 (01:10→13:18)
[2024-12-27 01:47] LABS: CALCIUM LEVEL 8.6 MG/DL (8.5-10.1); CARBON DIOXIDE LEVEL 24 MMOL/L (20-31); CHLORIDE LEVEL 107 MMOL/L (98-107); CREATININE FOR GFR 0.78 MG/DL (0.55-1.30); GLOMERULAR FILTRATION RATE > 90.0 (>60); POTASSIUM SERUM 4.3 MMOL/L (3.5-5.1); SODIUM LEVEL 140 MMOL/L (136-145)
[2024-12-27] MEDS ORDERED: GLUCOSE 4 GM CHEW PO PRN (02:05)
[2024-12-27] MEDS ORDERED: DEXTROSE 50% 50 ML SYRINGE IV PRN (02:05)
[2024-12-27] MEDS ORDERED: GLUCAGON INJ 1 MG VIAL SC PRN (02:05)
[2024-12-27 03:39] LABS: BASO # 0.0 10^3/uL (0.0-0.2); BASO % 0.2 % (0.0-1.0); EOS # 0.0 10^3/uL (0.0-0.5); EOS % 0.1 % (0.0-3.0); LYMPH # 3.3 10^3/uL (1.5-5.0); LYMPH % 14.2 % (24.0-44.0); MONO # 1.5 10^3/uL (0.0-0.8); MONO % 6.5 % (2.0-8.0); NEUTROPHILS # 18.4 10^3/uL (1.5-8.5); NEUTROPHILS % 78.5 % (36.0-66.0); PLATELET COUNT, AUTOMATED 309 10^3/uL (150-450)
[2024-12-27 04:12] LABS: CALCIUM LEVEL 8.4 MG/DL (8.5-10.1); CARBON DIOXIDE LEVEL 23 MMOL/L (20-31); CHLORIDE LEVEL 108 MMOL/L (98-107); CREATININE FOR GFR 0.78 MG/DL (0.55-1.30); GLOMERULAR FILTRATION RATE > 90.0 (>60); POTASSIUM SERUM 4.4 MMOL/L (3.5-5.1); SODIUM LEVEL 141 MMOL/L (136-145)
[2024-12-27] MEDS: INSULIN LISPRO (NovoLOG) PER UNIT SC SCH (07:30)
[2024-12-27] MEDS: PANTOPRAZOLE 40MG TAB PO SCH (08:23)
[2024-12-27] MEDS: NEUTRA-PHOS 1.5 GM PACKET PO SCH (08:23)
[2024-12-27] MEDS: ENOXAPARIN 40 MG/0.4 ML SYRINGE (J1650 PER 10MG) SC SCH (08:24)
[2024-12-27] MEDS: ACETAMINOPHEN 325 MG TAB PO PRN (09:36)
[2024-12-27 14:27] LABS: CALCIUM LEVEL 8.1 MG/DL (8.5-10.1); CARBON DIOXIDE LEVEL 22 MMOL/L (20-31); CHLORIDE LEVEL 106 MMOL/L (98-107); CREATININE FOR GFR 0.81 MG/DL (0.55-1.30); GLOMERULAR FILTRATION RATE > 90.0 (>60); POTASSIUM SERUM 6.4 MMOL/L (3.5-5.1); SODIUM LEVEL 138 MMOL/L (136-145)
[2024-12-27 15:53] LABS: BASO # 0.0 10^3/uL (0.0-0.2); BASO % 0.2 % (0.0-1.0); EOS # 0.0 10^3/uL (0.0-0.5); EOS % 0.2 % (0.0-3.0); LYMPH # 4.0 10^3/uL (1.5-5.0); LYMPH % 21.5 % (24.0-44.0); MONO # 0.7 10^3/uL (0.0-0.8); MONO % 3.9 % (2.0-8.0); NEUTROPHILS # 13.8 10^3/uL (1.5-8.5); NEUTROPHILS % 73.7 % (36.0-66.0); PLATELET COUNT, AUTOMATED 375 10^3/uL (150-450)
[2024-12-27 16:29] LABS: CALCIUM LEVEL 8.9 MG/DL (8.5-10.1); CARBON DIOXIDE LEVEL 17 MMOL/L (20-31); CHLORIDE LEVEL 104 MMOL/L (98-107); CREATININE FOR GFR 0.80 MG/DL (0.55-1.30); GLOMERULAR FILTRATION RATE > 90.0 (>60); POTASSIUM SERUM 4.6 MMOL/L (3.5-5.1); SODIUM LEVEL 137 MMOL/L (136-145)
[2024-12-27] MEDS ORDERED: AMOX875T2 PO (18:48)
[2024-12-27 19:06] LABS: CALCIUM LEVEL 8.4 MG/DL (8.5-10.1); CARBON DIOXIDE LEVEL 27 MMOL/L (20-31); CHLORIDE LEVEL 105 MMOL/L (98-107); CREATININE FOR GFR 0.84 MG/DL (0.55-1.30); GLOMERULAR FILTRATION RATE > 90.0 (>60); POTASSIUM SERUM 3.8 MMOL/L (3.5-5.1); SODIUM LEVEL 142 MMOL/L (136-145)
[2024-12-27] MEDS ORDERED: INSULIN LISPRO (NovoLOG) PER UNIT SC SCH (21:00)
[2024-12-28] MEDS ORDERED: LanTUS (INSULIN GLARGINE INJ) 1 UNITS/0.01 ML SC SCH (09:00)
== END 2024-12-27 19:16 | disposition home or self-care (01) | DRG 420 ==
LOC: M ED 16:47 → M ED INP 19:00 → M ICU 20:42
PROVIDERS: ADMIT Internal Medicine Pulmonary Disease; ATTEND Internal Medicine Pulmonary Disease
DX: E10.10 Type 1 diabetes mellitus with ketoacidosis without coma (principal); E10.22 Type 1 diabetes mellitus with diabetic chronic kidney disease; N18.1 Chronic kidney disease, stage 1; F17.210 Nicotine dependence, cigarettes, uncomplicated; J02.9 Acute pharyngitis, unspecified; Z79.4 Long term (current) use of insulin; Z79.899 Other long term (current) drug therapy

== ENCOUNTER → 2025-04-05 | Outpatient (CLI) | payer OTHER ==
[~2025-04-05] MED LIST changes: +AMOX875T2 PO; +ASPI-226 PO; +INSUHUMDS; +MULT-90 PO; +ROSU20TA86 PO
[2025-04-05 11:24] LABS: CREATININE, URINE 170.6 MG/DL; MALB URINE SIEMENS < 3.0 MG/L
[2025-04-05 11:26] LABS: ALT/SGPT 10 U/L (7.0-40); AST/SGOT 15 U/L (<34); CALCIUM LEVEL 8.9 MG/DL (8.5-10.1); CARBON DIOXIDE LEVEL 29 MMOL/L (20-31); CHLORIDE LEVEL 105 MMOL/L (98-107); CHOLESTEROL LEVEL 242 MG/DL (<200); CHOLESTEROL RISK RATIO 6.25 (<5); CREATININE FOR GFR 0.82 MG/DL (0.55-1.30); GLOMERULAR FILTRATION RATE > 90.0 (>60); LDL CHOLESTEROL 184.7 MG/DL (<100); NON-HDL-C 203.3 MG/DL; POTASSIUM SERUM 4.4 MMOL/L (3.5-5.1); SODIUM LEVEL 137 MMOL/L (136-145); TRIGLYCERIDES LEVEL 93 MG/DL (<150)
== END ==
LOC: M PLALAB 09:19
PROVIDERS: ATTEND Nurse Practitioner Family
DX: E78.2 Mixed hyperlipidemia (principal); R80.9 Proteinuria, unspecified